=== PATIENT | female | born 1975 ===

== ENCOUNTER 2016-12-31 08:49 | Outpatient (CLI) | payer OTHER ==
--- NOTE | 2016-12-31 09:57 | Mammography Report ---
Bilateral mammogram: The patient presents with a history of her physician feeling a lump in her left breast. A marker was placed over the medial breast as identified by the patient. The patient indicates she does not feel the lump. Routine views were obtained. The intermediate and symmetrically distributed fibroglandular pattern. No asymmetry identified and no abnormality in the area of the marker. Her physician was notified of the findings indicating she did not feel a lump and does not need an ultrasound exam. CAD used. Impression: Unremarkable exam. Recommendation: Annual mammogram followup. BI-RADS CATEGORY: 1 = Negative ACR BI-RADS MAMMOGRAPHIC CODES: 0 = Needs additional imaging evaluation; 1 = Negative; 2 = Benign; 3 = Probably benign; 4 = Suspicious; 5 = Malignant; 6 = Known biopsy-proven malignancy COMMENT: 1. Dense breast tissue, i.e., adenosis, fibrocystic changes, etc., may obscure an underlying neoplasm. 2. Approximately 10% of cancers are not detected with mammography. 3. A negative mammography report should not delay biopsy if a clinically suspicious mass is present.
== END 2016-12-31 08:50 | disposition home or self-care (01) ==
LOC: MAMMO 08:49
PROVIDERS: ATTEND Family Medicine
DX: N63.0 Unspecified lump in unspecified breast (principal)
CPT/HCPCS: 77066; G0204